=== PATIENT | male | born 1960 | race Caucasian/White ===

== ENCOUNTER 2019-05-05 19:33 | Emergency (ER) | payer OTHER ==
--- NOTE | 2019-05-05 20:35 | EDM.PDOC ---
ED HPI GENERAL MEDICAL PROBLEM - General Chief Complaint: ENT Problem Stated Complaint: BLOODY NOSE Time Seen by Provider: 05/05/19 20:00 Source of Information: Reports: Patient, Significant Other History Limitations: Reports: No Limitations - History of Present Illness INITIAL COMMENTS - FREE TEXT/NARRATIVE: Patient presents with a nose bleed that started about an hour before coming in. He hasn't had problems with nosebleeds before and isn't on any blood thinners. He was getting ready to work out when this started. He has had high blood pressure for years and quit his BP meds at least two years ago thinking he could manage it himself. He doesn't have a PCP but wants to establish with one now. - Related Data Allergies Allergy/AdvReac Type Severity Reaction Status Date / Time No Known Drug Allergies Allergy Other Verified 05/05/19 19:36 Past Medical History Cardiovascular History: Reports: Hypertension Social & Family History - Tobacco Use Smoking Status *Q: Never Smoker - Recreational Drug Use Recreational Drug Use: No ED ROS ENT - Review of Systems Review Of Systems: See Below Constitutional: Denies: Fever, Malaise, Weakness HEENT: Denies: Throat Pain, Throat Swelling, Vision Change Respiratory: Denies: Shortness of Breath, Cough Cardiovascular: Denies: Chest Pain, Lightheadedness, Syncope GI/Abdominal: Denies: Abdominal Pain, Diarrhea, Vomiting Musculoskeletal: Denies: Neck Pain, Shoulder Pain Skin: Denies: Cyanosis, Jaundice, Mottled, Pallor, Diaphoresis Neurological: Denies: Confusion, Dizziness, Headache, Seizure, Syncope, Trouble Speaking, Difficulty Walking Psychiatric: Denies: Agitation, Anxiety, Confusion Hematologic/Lymphatic: Denies: Anemia, Easy Bleeding ED EXAM, ENT - Physical Exam Exam: See Below Exam Limited By: No Limitations General Appearance: Alert, WD/WN, No Apparent Distress Eye Exam: Bilateral Eye: EOMI, Normal Inspection, PERRL Ears: Normal External Exam, Hearing Grossly Normal Nose: Active Bleeding (left nostril). No: Clear Rhinorrhea, Nasal Deformity, Nasal Swelling, Nasal Tenderness, Nasal Ecchymosis Mouth/Throat: Normal Gums, Normal Lips, Other (pharyngeal blood visible from nasal airway). No: Throat Swelling, Tonsillar Swelling Head: Atraumatic, Normocephalic Neck: Normal Inspection, Full Range of Motion Respiratory/Chest: No Respiratory Distress, Lungs Clear, Normal Breath Sounds Cardiovascular: Regular Rate, Rhythm, No Murmur GI/Abdominal: Normal Bowel Sounds, No Distention Back: Full Range of Motion Extremities: Normal Inspection, Normal Range of Motion Neurological: Alert, Oriented, Normal Cognition, No Motor/Sensory Deficits Psychiatric: Normal Affect, Normal Mood Skin: Warm, Dry, Intact, Normal Color, No Rash Course - Vital Signs Last Recorded V/S: Last Vital Signs Temp 97.1 F 05/05/19 19:37 Pulse 101 H 05/05/19 19:37 Resp 18 05/05/19 19:37 BP 193/108 H 05/05/19 19:52 Pulse Ox 99 05/05/19 19:37 - Re-Assessments/Exams Free Text/Narrative Re-Assessment/Exam: 05/05/19 20:49 A Rapid Rhino balloon (anterior/posterior) was inserted into left nostril after soaking for a minute in sterile saline. It was then inflated just enough to stop the bleeding. We had to adjust the pressure a couple of times to achieve hemostasis and patient tolerated this well. We discussed the importance of seeing ENT in the next 24-48 hours to remove the balloon and be able cauterize the vessel if it starts bleeding again. He also will try to follow up with ERIBERTO Schmid in clinic later this week for his blood pressure. He was given Lisinopril 10 mg in ER and sent home with four 10 mg tablets to take daily until clinic follow up. He said he thinks Lisinopril was what he used to take for his hypertension. We gave him the information for both [facility] in [place] so he can call his choice tomorrow morning. Pt is discharged to home in stable condition. Departure - Departure Time of Disposition: 20:49 Disposition: Home, Self-Care 01 Condition: Good Clinical Impression: Epistaxis not due to trauma Hypertension Qualifiers: Hypertension type: unspecified Qualified Code(s): I10 - Essential (primary) hypertension - Discharge Information Instructions: Nosebleed, [id number], Hypertension, [id number] Referrals: Berry Reynolds, [employer] MANAGER [Primary Care Provider] - Additional Instructions: 1. Keep the nasal catheter in place until you see an ENT doctor tomorrow or Sunday. You may need to adjust the air pressure if bleeding begins again. Don't use any more pressure than necessary to control the bleeding. 2. Tomorrow morning call the ENT clinic to make appointment for either Sunday or Sunday as the catheter cannot stay in longer than 48 hours, as we discussed. 3. Take the Lisinopril daily as discussed and follow up with a PCP some time this week for further evaluation of your blood pressure. Sepsis Event Note - Evaluation Sepsis Screening Result: No Definite Risk - Focused Exam Vital Signs: Vital Signs Temp Pulse Resp BP Pulse Ox 05/05/19 19:52 193/108 H 05/05/19 19:37 97.1 F 101 H 18 182/115 H 99 Date Exam was Performed: 05/05/19 Time Exam was Performed: 20:30
[2019-05-05] MEDS: Lisinopril 10 MG Tab PO ONE ×2 (20:42→20:51)
[2019-05-05 20:46] VITALS: BP 183/114
[2019-05-05 20:48] VITALS: PULSE 100
== END 2019-05-05 21:00 | disposition home or self-care (01) ==
LOC: KA.ED 19:33
DX: R04.0 Epistaxis (principal); I10 Essential (primary) hypertension
CPT/HCPCS: 30903; 99283-25; A9270-GY